=== PATIENT | male | born 1975 | race Two or more races ===

== ENCOUNTER 2025-06-27 10:44 | Inpatient (IN) | payer OTHER ==
[~2025-06-27] VITALS: Ht 167.6 cm; Wt 85.3 kg
[2025-06-27] MEDS ORDERED: 0.9 % SODIUM CHLORIDE 1,000 ML IV ONE (12:45)
[2025-06-27 13:38] LABS: BASO % 0.3 % (0.1-1.2); EOS # 0.08 (0.04-0.54); EOS % 1.2 % (0.7-7.0); LYMPH # 1.15 (1.18-3.74); LYMPH % 16.9 % (19.3-53.1); MEAN PLATELET VOLUME 13.10 fl (9.4-12.4); MONO # 0.55 (0.24-0.82); MONO % 8.1 % (4.7-12.5); NEUT # 4.97 (1.56-6.13); NEUT % 73.1 % (34.0-71.1); RED CELL DISTRIBUTION WIDTH 12.3 % (11.6-14.4)
[2025-06-27 13:39] LABS: URINE APPEARANCE Clear; URINE BILIRRUBIN Small (NEGATIVE); URINE BLOOD Large; URINE COLOR Dark Yellow; URINE GLUCOSE Negative (NEGATIVE); URINE KETONE Trace (NEGATIVE); URINE LEUKOCYTE Trace; URINE NITRATE Negative; URINE UROBILINOGEN 1.0 E.U./dl
[2025-06-27 13:42] LABS: INR 1.01
[2025-06-27 13:43] LABS: URINE BACTERIA 41.9 uL (0.0-1933); URINE CAST 3.07 uL (0.0-1.40); URINE EPITHELIAL CELLS 40.6 uL (0.0-38.8); URINE RBC 714.6 uL (0.0-20.8); URINE WBC 17.3 uL (0.0-23.2)
[2025-06-27 13:49] LABS: ERYTHROCYTE SEDIMENTATION RATE 34 mm/hr (0-15)
[2025-06-27 13:54] LABS: URINE PROTEIN 300 (NEGATIVE)
[2025-06-27 13:59] LABS: URINE MUCUS MODERATE
[2025-06-27 14:04] LABS: ALT/SGPT 24.0 U/L (12-78); AST/SGOT 39.0 U/L (15-37); BILIRUBIN TOTAL 3.57 mg/dL (0.3-1.2); BUN CREA RATIO 15.0 (7.0-25.0); CREATININE SERUM 1.04 mg/dL (0.70-1.30); GFR 75.9; GLOBULINA 3.2 G/DL (2.4-3.5); GLUCOSE FASTING 102.0 mg/dL (65-100); OSMOLALITY SERUM 284.0 MOSM/KG (275-295)
[2025-06-27 14:16] LABS: COVID-19 AG NEGATIVE (NEGATIVE)
[2025-06-27] MEDS ORDERED: METHYLPREDNISOLONE SOD SUCC 40 MG VIAL IV ONE (14:45)
[2025-06-27] MEDS ORDERED: METHYLPREDNISOLONE SOD SUCC 40 MG VIAL ONE (15:08)
[2025-06-27 16:46] LABS: D DIMER 2.11 MG/L
[2025-06-27 18:11] LABS: BASO % 0.2 % (0.1-1.2); EOS # 0.02 (0.04-0.54); EOS % 0.2 % (0.7-7.0); LYMPH # 0.71 (1.18-3.74); LYMPH % 7.5 % (19.3-53.1); MEAN PLATELET VOLUME 11.50 fl (9.4-12.4); MONO # 0.17 (0.24-0.82); MONO % 1.8 % (4.7-12.5); NEUT # 8.49 (1.56-6.13); NEUT % 89.8 % (34.0-71.1); RED CELL DISTRIBUTION WIDTH 12.3 % (11.6-14.4)
[2025-06-27] MEDS ORDERED: 0.9 % SODIUM CHLORIDE 1,000 ML IV SCH (19:30)
[2025-06-27] MEDS ORDERED: ACETAMINOPHEN 325 MG TABLET PO PRN (19:45)
[2025-06-27] MEDS ORDERED: ENALAPRILAT DIHYDRATE 1.25 MG/ML VIAL IV PRN (20:00)
[2025-06-27 21:20] LABS: ALT/SGPT 27.0 U/L (12-78); AST/SGOT 42.0 U/L (15-37); BILIRUBIN TOTAL 3.17 mg/dL (0.3-1.2); BILIRUBIN,CONJUGATED 0.55 mg/dL (0.0-0.2); LDH 864.0 U/L (87-241)
[2025-06-27 21:33] VITALS: BP 132/81; O2SAT 98
[2025-06-27 23:33] VITALS: BP 128/80; O2SAT 98
[2025-06-28] MEDS ORDERED: METHYLPREDNISOLONE SOD SUCC 40 MG VIAL IV SCH (01:00)
[2025-06-28 04:00] VITALS: BP 122/79; O2SAT 99
[2025-06-28 07:06] VITALS: BP 119/73; O2SAT 100
[2025-06-28] MEDS ORDERED: RINGERS SOLUTION,LACTATED 1,000 ML IV SCH (07:30)
[2025-06-28 08:06] LABS: BASO % 0.1 % (0.1-1.2); EOS # 0.00 (0.04-0.54); EOS % 0.0 % (0.7-7.0); LYMPH # 0.79 (1.18-3.74); LYMPH % 6.4 % (19.3-53.1); MEAN PLATELET VOLUME 11.40 fl (9.4-12.4); MONO # 0.53 (0.24-0.82); MONO % 4.3 % (4.7-12.5); NEUT # 10.91 (1.56-6.13); NEUT % 88.6 % (34.0-71.1); RED CELL DISTRIBUTION WIDTH 12.1 % (11.6-14.4)
[2025-06-28 08:41] LABS: BUN CREA RATIO 21.0 (7.0-25.0); CREATININE SERUM 0.95 mg/dL (0.70-1.30); GFR 84.26; GLUCOSE FASTING 127.0 mg/dL (65-100); OSMOLALITY SERUM 291.0 MOSM/KG (275-295)
[2025-06-28] MEDS ORDERED: PANTOPRAZOLE SODIUM 40 MG/VIAL VIAL IV SCH (09:00)
[2025-06-28] MEDS ORDERED: ASPIRIN 325 MG TABLET PO SCH (09:00)
[2025-06-28] MEDS ORDERED: METHYLPREDNISOLONE SOD SUCC 1,000 MG VIAL IV SCH (09:00)
[2025-06-28 11:21] LABS: BUN CREA RATIO 17.0 (7.0-25.0); CREATININE SERUM 1.03 mg/dL (0.70-1.30); GFR 76.75; GLUCOSE FASTING 142.0 mg/dL (65-100); OSMOLALITY SERUM 293.0 MOSM/KG (275-295)
[2025-06-28 12:12] VITALS: O2SAT 98
[2025-06-28 15:30] VITALS: BP 120/81; O2SAT 97
[2025-06-28 20:00] VITALS: BP 133/86; O2SAT 97
[2025-06-28 21:15] LABS: BASO % 0.1 % (0.1-1.2); EOS # 0.00 (0.04-0.54); EOS % 0.0 % (0.7-7.0); LYMPH # 1.05 (1.18-3.74); LYMPH % 6.2 % (19.3-53.1); MEAN PLATELET VOLUME 9.70 fl (9.4-12.4); MONO # 0.44 (0.24-0.82); MONO % 2.6 % (4.7-12.5); NEUT # 15.25 (1.56-6.13); NEUT % 90.1 % (34.0-71.1); RED CELL DISTRIBUTION WIDTH 12.5 % (11.6-14.4)
[2025-06-28 23:30] VITALS: BP 115/68; O2SAT 97
[2025-06-29 04:00] VITALS: BP 110/77; O2SAT 96
[2025-06-29 06:35] LABS: BASO % 0.1 % (0.1-1.2); EOS # 0.00 (0.04-0.54); EOS % 0.0 % (0.7-7.0); LYMPH # 1.50 (1.18-3.74); LYMPH % 7.5 % (19.3-53.1); MEAN PLATELET VOLUME 8.80 fl (9.4-12.4); MONO # 1.18 (0.24-0.82); MONO % 5.9 % (4.7-12.5); NEUT # 17.06 (1.56-6.13); NEUT % 85.1 % (34.0-71.1); RED CELL DISTRIBUTION WIDTH 12.6 % (11.6-14.4)
[2025-06-29 07:08] LABS: INR 1.11
[2025-06-29 07:12] VITALS: BP 106/79
[2025-06-29 07:24] LABS: ALT/SGPT 29.0 U/L (12-78); AST/SGOT 30.0 U/L (15-37); BILIRUBIN TOTAL 2.35 mg/dL (0.3-1.2); BUN CREA RATIO 22.0 (7.0-25.0); CREATININE SERUM 0.94 mg/dL (0.70-1.30); GFR 85.3; GLOBULINA 3.0 G/DL (2.4-3.5); GLUCOSE FASTING 122.0 mg/dL (65-100); LDH 807.0 U/L (87-241); OSMOLALITY SERUM 289.0 MOSM/KG (275-295)
[2025-06-29] MEDS ORDERED: ACETAMINOPHEN 500 MG GEL..CAP PO PRN (07:45)
[2025-06-29 12:00] VITALS: BP 124/80; O2SAT 99
[2025-06-29 15:44] VITALS: BP 124/80; O2SAT 97
[2025-06-29 20:23] VITALS: BP 129/97; O2SAT 100
[2025-06-29 23:00] VITALS: BP 139/79; O2SAT 97
[2025-06-30] VITALS (7 sets, daily range): BP systolic 109–141; BP diastolic 73–99; O2SAT 95–100
[2025-06-30 06:30] LABS: BASO % 0.2 % (0.1-1.2); EOS # 0.00 (0.04-0.54); EOS % 0.0 % (0.7-7.0); LYMPH # 2.46 (1.18-3.74); LYMPH % 14.2 % (19.3-53.1); MEAN PLATELET VOLUME 10.60 fl (9.4-12.4); MONO # 1.43 (0.24-0.82); MONO % 8.2 % (4.7-12.5); NEUT # 12.66 (1.56-6.13); NEUT % 72.9 % (34.0-71.1); RED CELL DISTRIBUTION WIDTH 13.2 % (11.6-14.4)
[2025-06-30 07:10] LABS: INR 1.12
[2025-06-30 07:14] LABS: ALT/SGPT 27.0 U/L (12-78); AST/SGOT 30.0 U/L (15-37); BILIRUBIN TOTAL 2.7 mg/dL (0.3-1.2); BUN CREA RATIO 22.0 (7.0-25.0); CREATININE SERUM 1.0 mg/dL (0.70-1.30); GFR 79.42; GLOBULINA 2.6 G/DL (2.4-3.5); GLUCOSE FASTING 116.0 mg/dL (65-100); LDH 867.0 U/L (87-241); OSMOLALITY SERUM 291.0 MOSM/KG (275-295)
[2025-06-30] MEDS ORDERED: DIPHENHYDRAMINE HCL 50 MG/ML VIAL 1ML IV SCH (09:00)
[2025-06-30] MEDS ORDERED: METHYLPREDNISOLONE SOD SUCC 40 MG VIAL IV SCH (09:00)
[2025-06-30] MEDS ORDERED: CALCIUM CHLORIDE 100 MG/ML VIAL IV SCH (09:00)
[2025-06-30 10:52] LABS: BASO % 0.1 % (0.1-1.2); EOS # 0.01 (0.04-0.54); EOS % 0.1 % (0.7-7.0); LYMPH # 2.79 (1.18-3.74); LYMPH % 15.4 % (19.3-53.1); MEAN PLATELET VOLUME 9.10 fl (9.4-12.4); MONO # 1.93 (0.24-0.82); MONO % 10.7 % (4.7-12.5); NEUT # 12.58 (1.56-6.13); NEUT % 69.5 % (34.0-71.1); RED CELL DISTRIBUTION WIDTH 13.5 % (11.6-14.4)
[2025-06-30] MEDS ORDERED: HEPARIN SODIUM,PORCINE 5,000 UNITS/ML VIAL ONE ×2 (11:18→21:03)
[2025-06-30] MEDS ORDERED: LIDOCAINE HCL 1% 10ML VIAL ONE (11:24)
[2025-06-30] MEDS ORDERED: MORPHINE SULFATE 2 MG/ML CARTRIDGE IV PRN (13:15)
[2025-06-30] MEDS ORDERED: CALCIUM CHLORIDE 100 MG/ML VIAL IV NR (14:15)
[2025-06-30] MEDS ORDERED: METHYLPREDNISOLONE SOD SUCC 40 MG VIAL IV NR (14:15)
[2025-06-30] MEDS ORDERED: DIPHENHYDRAMINE HCL 50 MG/ML VIAL 1ML IV NR (14:15)
[2025-06-30] MEDS ORDERED: HEPARIN SODIUM,PORCINE 5,000 UNITS/ML VIAL IJ ONE (22:00)
[2025-07-01 04:04] VITALS: BP 116/74; O2SAT 95
[2025-07-01 07:00] VITALS: BP 120/77; O2SAT 96
[2025-07-01] MEDS ORDERED: CALCIUM CHLORIDE 100 MG/ML VIAL IV SCH ×2 (09:00)
[2025-07-01] MEDS ORDERED: DIPHENHYDRAMINE HCL 50 MG/ML VIAL 1ML IV SCH (09:00)
[2025-07-01] MEDS ORDERED: METHYLPREDNISOLONE SOD SUCC 40 MG VIAL IV SCH (09:00)
[2025-07-01 10:45] LABS: BASO % 0.2 % (0.1-1.2); EOS # 0.00 (0.04-0.54); EOS % 0.0 % (0.7-7.0); LYMPH # 2.95 (1.18-3.74); LYMPH % 16.5 % (19.3-53.1); MONO # 1.57 (0.24-0.82); MONO % 8.8 % (4.7-12.5); NEUT # 12.22 (1.56-6.13); NEUT % 68.6 % (34.0-71.1); RED CELL DISTRIBUTION WIDTH 16.2 % (11.6-14.4)
[2025-07-01 11:14] LABS: INR 1.13
[2025-07-01 11:22] LABS: ALT/SGPT 32.0 U/L (12-78); AST/SGOT 25.0 U/L (15-37); BILIRUBIN TOTAL 1.52 mg/dL (0.3-1.2); BUN CREA RATIO 22.0 (7.0-25.0); CREATININE SERUM 1.1 mg/dL (0.70-1.30); GFR 71.15; GLOBULINA 2.7 G/DL (2.4-3.5); GLUCOSE FASTING 119.0 mg/dL (65-100); LDH 554.0 U/L (87-241); OSMOLALITY SERUM 290.0 MOSM/KG (275-295)
[2025-07-01 12:00] VITALS: BP 129/88; O2SAT 96
[2025-07-01] MEDS ORDERED: HEPARIN SODIUM,PORCINE 5,000 UNITS/ML VIAL ONE (13:51)
[2025-07-01 15:10] VITALS: BP 117/80; O2SAT 96
[2025-07-01] MEDS ORDERED: DIPHENHYDRAMINE HCL 50 MG/ML VIAL 1ML ONE (16:40)
[2025-07-01] MEDS ORDERED: DIPHENHYDRAMINE HCL 50 MG/ML VIAL 1ML IV ONE (17:00)
[2025-07-01 20:08] VITALS: BP 121/82; O2SAT 100
[2025-07-01 23:30] VITALS: BP 117/78; O2SAT 96
[2025-07-02 04:19] VITALS: BP 114/71; O2SAT 97
[2025-07-02 04:38] LABS: BASO % 0.2 % (0.1-1.2); EOS # 0.02 (0.04-0.54); EOS % 0.1 % (0.7-7.0); LYMPH # 3.80 (1.18-3.74); LYMPH % 26.6 % (19.3-53.1); MONO # 0.97 (0.24-0.82); MONO % 6.8 % (4.7-12.5); NEUT # 8.66 (1.56-6.13); NEUT % 60.7 % (34.0-71.1); RED CELL DISTRIBUTION WIDTH 16.9 % (11.6-14.4)
[2025-07-02 04:47] LABS: INR 1.07
[2025-07-02 05:15] LABS: LYMPHOCYTE MAN 31.0 %; METAMYELOCYTE 2.0 %; MONOCYTE MAN 5.0 %; NEUTROPHILS MAN 61.0 %
[2025-07-02 07:14] LABS: ALT/SGPT 53.0 U/L (12-78); AST/SGOT 29.0 U/L (15-37); BILIRUBIN TOTAL 0.91 mg/dL (0.3-1.2); BUN CREA RATIO 24.0 (7.0-25.0); CREATININE SERUM 1.06 mg/dL (0.70-1.30); GFR 74.25; GLOBULINA 2.7 G/DL (2.4-3.5); GLUCOSE FASTING 80.0 mg/dL (65-100); LDH 359.0 U/L (87-241); OSMOLALITY SERUM 288.0 MOSM/KG (275-295)
[2025-07-02 07:49] VITALS: BP 129/84; O2SAT 98
[2025-07-02] MEDS ORDERED: WATER FOR INJECTION,STERILE 20 ML VIAL IJ ONE (08:07)
[2025-07-02 12:00] VITALS: BP 129/89; O2SAT 96
[2025-07-02 15:00] VITALS: BP 122/90; O2SAT 97
[2025-07-02 20:00] VITALS: BP 125/92; O2SAT 97
[2025-07-02 23:36] VITALS: BP 114/81; O2SAT 98
[2025-07-03 04:00] VITALS: BP 132/81; O2SAT 96
[2025-07-03 05:16] LABS: INR 1.04
[2025-07-03 05:20] LABS: ALT/SGPT 80.0 U/L (12-78); AST/SGOT 35.0 U/L (15-37); BILIRUBIN TOTAL 1.05 mg/dL (0.3-1.2); BUN CREA RATIO 22.0 (7.0-25.0); CREATININE SERUM 1.05 mg/dL (0.70-1.30); GFR 75.07; GLOBULINA 2.8 G/DL (2.4-3.5); GLUCOSE FASTING 88.0 mg/dL (65-100); LDH 315.0 U/L (87-241); OSMOLALITY SERUM 284.0 MOSM/KG (275-295)
[2025-07-03 05:45] LABS: BASO % 0.2 % (0.1-1.2); EOS % 2.1 % (0.7-7.0); LYMPH # 3.82 (1.18-3.74); LYMPH % 30.6 % (19.3-53.1); MEAN PLATELET VOLUME 13.20 fl (9.4-12.4); MONO % 6.9 % (4.7-12.5); NEUT # 7.05 (1.56-6.13); NEUT % 56.3 % (34.0-71.1); RED CELL DISTRIBUTION WIDTH 17.6 % (11.6-14.4)
[2025-07-03 05:46] LABS: EOS # 0.26 (0.04-0.54); MONO # 0.86 (0.24-0.82)
[2025-07-03] MEDS ORDERED: WATER FOR INJECTION,STERILE 20 ML VIAL IJ ONE (07:09)
[2025-07-03 07:32] VITALS: BP 113/83; O2SAT 98
[2025-07-03] MEDS ORDERED: PANTOPRAZOLE SODIUM 40 MG TABLET.DR PO SCH (09:00)
[2025-07-03 14:27] VITALS: BP 129/85; O2SAT 98
[2025-07-03 15:10] LABS: g6pd quant 365 (127-427)
[2025-07-03 15:16] VITALS: BP 118/73; O2SAT 96
[2025-07-03 20:00] VITALS: BP 117/85; O2SAT 97
[2025-07-03 23:24] VITALS: BP 112/75; O2SAT 97
[2025-07-04 04:02] VITALS: BP 109/72; O2SAT 97
[2025-07-04 04:40] LABS: BASO % 0.2 % (0.1-1.2); EOS # 0.39 (0.04-0.54); EOS % 3.1 % (0.7-7.0); LYMPH # 3.38 (1.18-3.74); LYMPH % 26.6 % (19.3-53.1); MEAN PLATELET VOLUME 12.60 fl (9.4-12.4); MONO # 0.83 (0.24-0.82); MONO % 6.5 % (4.7-12.5); NEUT # 7.69 (1.56-6.13); NEUT % 60.6 % (34.0-71.1); RED CELL DISTRIBUTION WIDTH 17.8 % (11.6-14.4)
[2025-07-04 05:06] LABS: INR 1.04
[2025-07-04 05:09] LABS: ALT/SGPT 103.0 U/L (12-78); AST/SGOT 43.0 U/L (15-37); BILIRUBIN TOTAL 0.95 mg/dL (0.3-1.2); BUN CREA RATIO 22.0 (7.0-25.0); CREATININE SERUM 1.12 mg/dL (0.70-1.30); GFR 69.68; GLOBULINA 2.6 G/DL (2.4-3.5); GLUCOSE FASTING 97.0 mg/dL (65-100); LDH 342.0 U/L (87-241); OSMOLALITY SERUM 282.0 MOSM/KG (275-295)
[2025-07-04] MEDS ORDERED: WATER FOR INJECTION,STERILE 20 ML VIAL IJ ONE (07:14)
[2025-07-04 07:16] VITALS: BP 108/75; O2SAT 98
[2025-07-04] MEDS ORDERED: HEPARIN SODIUM,PORCINE 5,000 UNITS/ML VIAL ONE (08:39)
[2025-07-04 12:30] VITALS: BP 131/82; O2SAT 98
[2025-07-04 15:28] VITALS: BP 118/73; O2SAT 98
[2025-07-04 20:00] VITALS: BP 120/84; O2SAT 100
[2025-07-04 23:43] VITALS: BP 117/74; O2SAT 97
[2025-07-05 04:00] VITALS: BP 106/79; O2SAT 95
[2025-07-05 04:27] LABS: BASO % 0.2 % (0.1-1.2); EOS # 0.26 (0.04-0.54); EOS % 2.0 % (0.7-7.0); LYMPH # 2.40 (1.18-3.74); LYMPH % 18.2 % (19.3-53.1); MEAN PLATELET VOLUME 12.30 fl (9.4-12.4); MONO # 0.72 (0.24-0.82); MONO % 5.5 % (4.7-12.5); NEUT # 9.49 (1.56-6.13); NEUT % 71.9 % (34.0-71.1); RED CELL DISTRIBUTION WIDTH 17.6 % (11.6-14.4)
[2025-07-05 04:47] LABS: ALT/SGPT 97.0 U/L (12-78); AST/SGOT 35.0 U/L (15-37); BILIRUBIN TOTAL 0.83 mg/dL (0.3-1.2); BUN CREA RATIO 21.0 (7.0-25.0); CREATININE SERUM 1.03 mg/dL (0.70-1.30); GFR 76.75; GLOBULINA 2.7 G/DL (2.4-3.5); GLUCOSE FASTING 112.0 mg/dL (65-100); LDH 324.0 U/L (87-241); OSMOLALITY SERUM 282.0 MOSM/KG (275-295)
[2025-07-05 04:55] LABS: INR 1.04
[2025-07-05 07:28] VITALS: BP 112/78; O2SAT 100
[2025-07-05] MEDS ORDERED: HEPARIN SODIUM,PORCINE 5,000 UNITS/ML VIAL ONE (10:23)
[2025-07-05 12:17] VITALS: BP 120/80; O2SAT 96
[2025-07-05 15:30] VITALS: BP 113/80; O2SAT 98
[2025-07-05 20:00] VITALS: BP 117/91; O2SAT 98
[2025-07-05 23:32] VITALS: BP 106/77; O2SAT 99
[2025-07-06 04:00] VITALS: BP 110/74; O2SAT 100
[2025-07-06 06:19] LABS: BASO % 0.2 % (0.1-1.2); EOS # 0.40 (0.04-0.54); EOS % 3.3 % (0.7-7.0); LYMPH # 3.46 (1.18-3.74); LYMPH % 28.6 % (19.3-53.1); MEAN PLATELET VOLUME 12.20 fl (9.4-12.4); MONO # 0.97 (0.24-0.82); MONO % 8.0 % (4.7-12.5); NEUT # 6.97 (1.56-6.13); NEUT % 57.5 % (34.0-71.1); RED CELL DISTRIBUTION WIDTH 17.6 % (11.6-14.4)
[2025-07-06 06:45] LABS: ALT/SGPT 69.0 U/L (12-78); AST/SGOT 23.0 U/L (15-37); BILIRUBIN TOTAL 0.85 mg/dL (0.3-1.2); BUN CREA RATIO 18.0 (7.0-25.0); CREATININE SERUM 1.16 mg/dL (0.70-1.30); GFR 66.92; GLOBULINA 2.7 G/DL (2.4-3.5); GLUCOSE FASTING 90.0 mg/dL (65-100); LDH 282.0 U/L (87-241); OSMOLALITY SERUM 282.0 MOSM/KG (275-295)
[2025-07-06 06:53] LABS: INR 1.03
[2025-07-06 07:23] VITALS: BP 111/74; O2SAT 100
[2025-07-06 12:00] VITALS: BP 134/74; O2SAT 99
[2025-07-06] MEDS ORDERED: HEPARIN SODIUM,PORCINE 5,000 UNITS/ML VIAL ONE (12:11)
[2025-07-06] MEDS ORDERED: HEPARIN SODIUM,PORCINE 5,000 UNITS/ML VIAL IJ NR (12:45)
[2025-07-06] MEDS ORDERED: METHYLPREDNISOLONE SOD SUCC 40 MG VIAL IV ONE (14:15)
[2025-07-06] MEDS ORDERED: DIPHENHYDRAMINE HCL 50 MG/ML VIAL 1ML IV ONE (14:15)
[2025-07-06] MEDS ORDERED: HYOSCYAMINE SULFATE 0.125 MG TAB.SUBL SL STA (14:25)
[2025-07-06] MEDS ORDERED: HYOSCYAMINE SULFATE 0.125 MG TAB.SUBL SL PRN (14:30)
[2025-07-06 15:46] VITALS: BP 132/85; O2SAT 100
[2025-07-06 20:00] VITALS: BP 127/84; O2SAT 96
[2025-07-06 23:29] VITALS: BP 117/74; O2SAT 97
[2025-07-07 04:00] VITALS: BP 112/76; O2SAT 97
[2025-07-07 07:10] VITALS: BP 109/74; O2SAT 98
[2025-07-07 12:00] VITALS: BP 128/80; O2SAT 100
[2025-07-07 20:29] VITALS: BP 117/74; O2SAT 97
[2025-07-08 03:01] VITALS: BP 96/72; O2SAT 97
[2025-07-08 06:28] LABS: BASO % 0.2 % (0.1-1.2); EOS # 0.21 (0.04-0.54); EOS % 2.1 % (0.7-7.0); LYMPH # 2.97 (1.18-3.74); LYMPH % 29.4 % (19.3-53.1); MEAN PLATELET VOLUME 12.30 fl (9.4-12.4); MONO # 1.00 (0.24-0.82); MONO % 9.9 % (4.7-12.5); NEUT # 5.77 (1.56-6.13); NEUT % 57.1 % (34.0-71.1); RED CELL DISTRIBUTION WIDTH 17.3 % (11.6-14.4)
[2025-07-08 07:01] LABS: BUN CREA RATIO 18.0 (7.0-25.0); CREATININE SERUM 0.94 mg/dL (0.70-1.30); GFR 85.3; GLUCOSE FASTING 83.0 mg/dL (65-100); LDH 267.0 U/L (87-241); OSMOLALITY SERUM 276.0 MOSM/KG (275-295)
[2025-07-08 08:24] VITALS: BP 102/67; O2SAT 98
== END 2025-07-08 14:11 | disposition home or self-care (01) | DRG 546 ==
LOC: ER 10:45 → ICU 19:51 → ICU-2 19:51 → ICU 21:29 → MEDJ 07-07 14:58
PROVIDERS: General Practice; Internal Medicine Hematology & Oncology; Student in an Organized Health Care Education/Training Program; ADMIT Internal Medicine; ATTEND Internal Medicine
PROC: BW21ZZZ Computerized Tomography (CT Scan) of Abdomen and Pelvis (ICD-10-PCS; 2025-06-27)
PROC: BW28ZZZ Computerized Tomography (CT Scan) of Head (ICD-10-PCS; 2025-06-27)
PROC: 30233R1 Transfusion of Nonautologous Platelets into Peripheral Vein, Percutaneous Approach (ICD-10-PCS; 2025-06-28)
PROC: 6A551Z3 Pheresis of Plasma, Multiple (ICD-10-PCS; principal; 2025-07-01)
PROC: 0YH733Z Insertion of Infusion Device into Right Femoral Region, Percutaneous Approach (ICD-10-PCS; 2025-07-01)
PROC: 30233N1 Transfusion of Nonautologous Red Blood Cells into Peripheral Vein, Percutaneous Approach (ICD-10-PCS; 2025-07-01)
DX: M31.19 Other thrombotic microangiopathy (principal); C95.90 Leukemia, unspecified not having achieved remission; D64.9 Anemia, unspecified

== ENCOUNTER 2025-07-16 15:36 | Emergency (ER) | payer OTHER ==
[~2025-07-16] VITALS: Ht 167.6 cm; Wt 85.3 kg
[2025-07-16] MEDS ORDERED: MORPHINE SULFATE 2 MG/ML SYRINGE IV ONE (17:00)
[2025-07-16] MEDS ORDERED: PANTOPRAZOLE SODIUM 40 MG/VIAL VIAL IV ONE (17:00)
[2025-07-16] MEDS ORDERED: 0.9 % SODIUM CHLORIDE 1,000 ML IV SCH (17:15)
[2025-07-16 17:56] LABS: BUN CREA RATIO 15.0 (7.0-25.0); CREATININE SERUM 0.99 mg/dL (0.70-1.30); GFR 80.34; GLUCOSE FASTING 139.0 mg/dL (65-100)
[2025-07-16 17:57] LABS: ALT/SGPT 36.0 U/L (12-78); AST/SGOT 45.0 U/L (15-37); BILIRUBIN TOTAL 2.95 mg/dL (0.3-1.2); BILIRUBIN,CONJUGATED 0.47 mg/dL (0.0-0.2); GLOBULINA 2.5 G/DL (2.4-3.5); LDH 800.0 U/L (87-241); OSMOLALITY SERUM 290.0 MOSM/KG (275-295)
[2025-07-16 18:01] LABS: BASO % 0.3 % (0.1-1.2); EOS # 0.09 (0.04-0.54); EOS % 1.3 % (0.7-7.0); LYMPH # 1.65 (1.18-3.74); LYMPH % 23.9 % (19.3-53.1); MONO # 0.66 (0.24-0.82); MONO % 9.6 % (4.7-12.5); NEUT # 4.34 (1.56-6.13); NEUT % 62.7 % (34.0-71.1); RED CELL DISTRIBUTION WIDTH 17.5 % (11.6-14.4)
[2025-07-16 18:25] LABS: INR 0.95
[2025-07-16 19:26] LABS: URINE APPEARANCE Turbid; URINE BILIRRUBIN Negative (NEGATIVE); URINE BLOOD Small; URINE COLOR Orange; URINE GLUCOSE Negative (NEGATIVE); URINE KETONE Trace (NEGATIVE); URINE LEUKOCYTE Small; URINE NITRATE Positive; URINE UROBILINOGEN 0.2 E.U./dl
[2025-07-16 19:30] LABS: URINE BACTERIA 23.9 uL (0.0-1933); URINE CAST 6.74 uL (0.0-1.40); URINE EPITHELIAL CELLS 40.7 uL (0.0-38.8); URINE RBC 42.6 uL (0.0-20.8); URINE WBC 13.3 uL (0.0-23.2)
[2025-07-16 19:43] LABS: COVID-19 AG NEGATIVE (NEGATIVE)
[2025-07-16 19:45] LABS: URINE CRYSTALS MANY /HPF; URINE PROTEIN 100 (NEGATIVE)
[2025-07-16] MEDS ORDERED: CEFTRIAXONE SODIUM 1,000 MG VIAL IV ONE (20:30)
[2025-07-16] MEDS ORDERED: METHYLPREDNISOLONE SOD SUCC 125 MG VIAL IV ONE (20:30)
[2025-07-17] MEDS ORDERED: METHYLPREDNISOLONE SOD SUCC 125 MG VIAL IV SCH (01:00)
[2025-07-17] MEDS ORDERED: 0.9 % SODIUM CHLORIDE 1,000 ML IV SCH (01:15)
== END 2025-07-17 06:59 | disposition designated cancer center or children's hospital (05) ==
LOC: ER 15:36
PROVIDERS: Student in an Organized Health Care Education/Training Program
DX: M31.19 Other thrombotic microangiopathy (principal); K76.89 Other specified diseases of liver; Z20.822 Contact with and (suspected) exposure to COVID-19